=== PATIENT | male | born 1965 | race Caucasian/White ===

== ENCOUNTER 2020-04-28 19:29 | Emergency (ER) | payer OTHER ==
[2020-04-28 20:36] VITALS: BP 163/98; PULSE 88; TEMP 98.7; BMI 34.2
[2020-04-28] MEDS ORDERED: KETOROLAC TROMETHAMINE 60 MG/2 ML VIAL IM ONE (21:26)
[2020-04-28] MEDS ORDERED: KETOROLAC TROMETHAMINE 30 MG/1 ML VIAL ONE (21:38)
== END 2020-04-28 22:23 | disposition home or self-care (01) ==
LOC: JER 19:29
PROC: 3E0233Z Introduction of Anti-inflammatory into Muscle, Percutaneous Approach (ICD-10-PCS; principal; 2020-04-28)
DX: M25.511 Pain in right shoulder (principal); M25.512 Pain in left shoulder; M25.562 Pain in left knee
CPT/HCPCS: 71046-TC-FY; 73030-TC-LT-FY; 73030-TC-RT-FY; 73564-TC-LT-FY; 99284-25